=== PATIENT | male | born 1980 | race Caucasian/White ===

== ENCOUNTER → 2021-01-10 | Outpatient (CLI) | payer OTHER ==
[~2021-01-10] MED LIST: ALLOPURINOL300 MG PO; ATENOLOL50 MG PO; ATORVASTATIN CA20 MG PO; AUGMENTIN 875-1 EACH PO; CELEXA40 MG PO; CITALOPRAM HBR40 MG PO; CLONAZEPAM1 MG PO; COLCRYS0.6 MG PO; CYCLOBENZAPRINE10 MG PO; FLEXERIL 10 MG10 MG PO; IMDUR ER TAB 3030 MG PO; KLONOPIN TAB 00.5 MG PO; LAMOTRIGINE100 MG PO; LISINOPRIL20 MG PO; MELOXICAM15 MG PO; METOPROLOL SUCC25 MG PO; MORPHINE SULFAT15 MG PO; MS CONTIN15 MG PO; NAPROXEN375 MG PO; NEURONTIN800 MG PO; NORTRIPTYLINE H25 MG PO; NORTRIPTYLINE H50 MG PO; OXYCODONE PO; OXYCODONE-ACET1 EACH PO; PRAVASTATIN SOD40 MG PO; RANITIDINE HCL150 MG PO; TRAZODONE HCL50 MG PO; ULORIC80 MG PO; VRAYLAR6 MG PO; [UNRECOGNIZED DRUG - OTHER] PO
== END ==
LOC: RAD 11:24
DX: M25.512 Pain in left shoulder (principal)
CPT/HCPCS: 73030

== ENCOUNTER → 2021-02-27 | Outpatient (CLI) | payer OTHER | LOC: RAD 11:47 | DX: U07.1 COVID-19 (principal); J84.9 Interstitial pulmonary disease, unspecified | CPT/HCPCS: 71046 ==

== ENCOUNTER → 2021-05-30 | Outpatient (CLI) | payer OTHER | LOC: KOH-I 08:00 | DX: M25.512 Pain in left shoulder (principal); M75.102 Unspecified rotator cuff tear or rupture of left shoulder, not specified as traumatic; S43.432A Superior glenoid labrum lesion of left shoulder, initial encounter | CPT/HCPCS: 73221 ==

== ENCOUNTER 2021-09-12 20:11 | Emergency (ER) | payer OTHER | END 2021-09-13 01:00 | disposition home or self-care (01) | LOC: ER1 20:11 | DX: M23.91 Unspecified internal derangement of right knee (principal) | CPT/HCPCS: 29530; 73562; 99283; J1650 ==

== ENCOUNTER → 2021-09-13 | Outpatient (CLI) | payer OTHER | LOC: EXRD 14:17 | DX: M79.89 Other specified soft tissue disorders (principal) | CPT/HCPCS: 93971 ==

== ENCOUNTER → 2021-09-24 | Outpatient (CLI) | payer OTHER ==
[2021-09-24 13:34] LABS: HEMOGLOBIN 15.5 gm/dl (14.0-17.5); RED BLOOD COUNT 5.22 M/UL (4.20-5.50); WHITE BLOOD COUNT 10.9 K/UL (4.5-11.0)
[2021-09-24 14:12] LABS: BUN/CREATININE RATIO 13 (0-10)
[2021-09-25 12:11] LABS: RHEUMATOID ARTHRITIS FACTOR <10.0 IU/mL (<14.0)
== END ==
LOC: LAB 13:16
PROVIDERS: Nurse Practitioner Family
DX: M10.9 Gout, unspecified (principal)
CPT/HCPCS: 36415; 80053; 83735; 84550; 85025; 85652; 86038; 86140; 86431

== ENCOUNTER → 2021-10-30 | Outpatient (CLI) | payer OTHER | LOC: KOH-I 10-25 10:30 | DX: M25.361 Other instability, right knee (principal); M25.561 Pain in right knee; M25.461 Effusion, right knee; M23.41 Loose body in knee, right knee | CPT/HCPCS: 73721 ==